=== PATIENT | female | born 1990 | race Caucasian/White ===

== ENCOUNTER 2017-02-15 16:36 | Inpatient (IN) | payer OTHER ==
[~2017-02-15] VITALS: Ht 149.9 cm; Wt 58.5 kg
[~2017-02-15 16:36] MED LIST: AMOX500 PO; CODACE30 PO; CYCL10 PO; Flonase 0.05% N16 GM; HYDACE5 PO; IBUP600 PO; LIDO2L TOP; NAPR375 PO; NAPR500 PO; NAPR550 PO; Naprosyn500 MG PO; Nix Lice Treatm59 ML TOP; OXYACE5T PO; PSEU120ER PO; RXCYCL10 PO; RXNAPNA550 PO; Ultram50 MG PO; Veetids 500500 MG PO; Verotin-Gr Cap1 EACH PO; Zofran Odt4 MG SL
[2017-02-15 17:26] LABS: BASOPHILS ABSOLUTE AUTO 0.02 K/mm3 (0.00-0.23); BASOPHILS PERCENT AUTO 0 % (0-2); EOSINOPHILS ABSOLUTE AUTO 0.01 K/mm3 (0.00-0.68); EOSINOPHILS PERCENT AUTO 0 % (0-6); Hematocrit 39.5 % (33.0-51.0); Hemoglobin 13.2 g/dL (11.5-16.0); IMMATURE GRAN ABSOLUTE AUTO 0.02 K/mm3 (0.00-0.10); IMMATURE GRAN PERCENT AUTO 0 % (0-1); LYMPHOCYTES ABSOLUTE AUTO 2.63 K/mm3 (0.84-5.20); LYMPHOCYTES PERCENT AUTO 26 % (21-46); MONOCYTES ABSOLUTE AUTO 0.33 K/mm3 (0.16-1.47); MONOCYTES PERCENT AUTO 3 % (4-13); Mean Corpuscular HGB 29.5 pg (26.0-34.0); Mean Corpuscular HGB Conc 33.4 g/dL (31.5-36.5); Mean Corpuscular Volume 88 fL (80-100); NEUTROPHILS ABSOLUTE AUTO 7.13 K/mm3 (1.96-9.15); NEUTROPHILS PERCENT AUTO 70 % (41-73); Platelet Count 261 K/mm3 (150-400); RDW Coefficient Variation 12.3 % (11.7-14.2); RDW Standard Deviation 39.5 fL (35.1-46.3); Red Blood Cell Count 4.47 M/mm3 (3.80-5.20); White Blood Cell Count 10.14 K/mm3 (4.00-11.30)
[2017-02-15 17:59] LABS: Ethanol (Alcohol), Blood, Med <3 mg/dL; Salicylate <1.7 mg/dL (2.8-20.0); Thyroxine (T4) 11.9 ug/dL (4.8-13.9)
[2017-02-15 18:00] LABS: Alanine Aminotransfer (ALT/SGP 23 U/L (12-78); Albumin, Blood 3.8 g/dL (3.4-5.0); Albumin/Globulin Ratio 1.1 (0.8-1.8); Alk Phos 64 U/L (50-136); Anion Gap 9 mmol/L (6-16); Aspartate Aminotrans (AST/SGOT 20 U/L (12-37); Bilirubin, Total 0.6 mg/dL (0.1-1.0); Blood Urea Nitrogen 10 mg/dL (8-24); Bun/Creatinine Ratio 15.9 (12.0-20.0); CO2, Blood 23 mmol/L (21-32); Calcium, Blood 8.7 mg/dL (8.5-10.1); Chloride, Blood 107 mmol/L (98-108); Creatinine, Blood 0.63 mg/dL (0.40-1.00); Globulin, Blood 3.5 g/dL (2.2-4.0); Glomerular Filtration Rate >60 (60-); Glucose, Blood 88 mg/dL (70-99); Potassium, Blood 3.6 mmol/L (3.5-5.5); Sodium, Blood 139 mmol/L (136-145); Total Protein, Blood 7.3 g/dL (6.4-8.2)
[2017-02-15 18:10] LABS: Acetaminophen, Random 125.5 ug/mL (10.0-30.0)
[2017-02-15 23:51] LABS: International Normalized Ratio 1.04; Prothrombin Time Results 10.8 Sec (9.7-11.5)
[2017-02-16 03:40] LABS: BASOPHILS ABSOLUTE AUTO 0.02 K/mm3 (0.00-0.23); BASOPHILS PERCENT AUTO 0 % (0-2); EOSINOPHILS ABSOLUTE AUTO 0.02 K/mm3 (0.00-0.68); EOSINOPHILS PERCENT AUTO 0 % (0-6); Hematocrit 34.8 % (33.0-51.0); Hemoglobin 11.9 g/dL (11.5-16.0); IMMATURE GRAN ABSOLUTE AUTO 0.01 K/mm3 (0.00-0.10); IMMATURE GRAN PERCENT AUTO 0 % (0-1); LYMPHOCYTES PERCENT AUTO 27 % (21-46); MONOCYTES ABSOLUTE AUTO 0.55 K/mm3 (0.16-1.47); MONOCYTES PERCENT AUTO 7 % (4-13); Mean Corpuscular HGB 29.9 pg (26.0-34.0); Mean Corpuscular HGB Conc 34.2 g/dL (31.5-36.5); Mean Corpuscular Volume 87 fL (80-100); Mean Platelet Volume 9.1 fL (9.1-12.4); NEUTROPHILS ABSOLUTE AUTO 5.59 K/mm3 (1.96-9.15); NEUTROPHILS PERCENT AUTO 66 % (41-73); Platelet Count 252 K/mm3 (150-400); RDW Coefficient Variation 12.2 % (11.7-14.2); RDW Standard Deviation 39.5 fL (35.1-46.3); Red Blood Cell Count 3.98 M/mm3 (3.80-5.20); White Blood Cell Count 8.49 K/mm3 (4.00-11.30)
[2017-02-16 04:09] LABS: Alanine Aminotransfer (ALT/SGP 16 U/L (12-78); Albumin, Blood 3.1 g/dL (3.4-5.0); Alk Phos 48 U/L (50-136); Anion Gap 10 mmol/L (6-16); Aspartate Aminotrans (AST/SGOT 11 U/L (12-37); Bilirubin, Total 0.6 mg/dL (0.1-1.0); Blood Urea Nitrogen 8 mg/dL (8-24); Bun/Creatinine Ratio 14.2 (12.0-20.0); CO2, Blood 23 mmol/L (21-32); Chloride, Blood 105 mmol/L (98-108); Creatinine, Blood 0.57 mg/dL (0.40-1.00); Globulin, Blood 3.2 g/dL (2.2-4.0); Glomerular Filtration Rate >60 (60-); Glucose, Blood 128 mg/dL (70-99); Potassium, Blood 3.4 mmol/L (3.5-5.5); Sodium, Blood 138 mmol/L (136-145); Total Protein, Blood 6.3 g/dL (6.4-8.2)
[2017-02-16 04:24] LABS: Bilirubin, Urine Neg (Neg); Blood, Urine 1+ (Neg); Glucose Qualitative, Urine Neg (Neg); Ketones, Urine 3+ (Neg); Leukocyte Esterase, Urine 2+ (Neg); Nitrite, Urine Neg (Neg); Protein, Urine Neg (Neg); Source, Urine Clean Catch; Urobilinogen, Urine NORM (Normal)
[2017-02-16 04:35] LABS: U Amphetamine Screen Not Detected; U Barbituate Screen Not Detected; U Benzodiazapine Screen Not Detected; U Buprenorphine Screen Not Detected; U Cannabinoids Screen DETECTED; U Cocaine Screen Not Detected; U Methadone Screen Not Detected; U Methamphetamine Screen Not Detected; U Opiates Screen Not Detected; U Oxycodone Screen Not Detected; U Phencyclidine Screen Not Detected; U Propoxyphene Screen Not Detected
[2017-02-16 04:36] LABS: Appearance, Urine Clear (Clear); Color, Urine Yellow (P-Yellow)
[2017-02-16 04:37] LABS: Bacteria Many /hpf; Red Blood Cells, Urine 0-2 /hpf (0-2); Squamous Epithelial Cells Mod /hpf (Few)
[2017-02-16 05:39] LABS: Calcium, Blood 7.7 mg/dL (8.5-10.1)
[2017-02-16 17:43] LABS: Acetaminophen, Random <2.0 ug/mL (10.0-30.0); Alanine Aminotransfer (ALT/SGP 21 U/L (12-78); Albumin, Blood 2.9 g/dL (3.4-5.0); Albumin/Globulin Ratio 0.9 (0.8-1.8); Alk Phos 48 U/L (50-136); Anion Gap 9 mmol/L (6-16); Aspartate Aminotrans (AST/SGOT 11 U/L (12-37); Bilirubin, Total 0.3 mg/dL (0.1-1.0); Blood Urea Nitrogen 7 mg/dL (8-24); Bun/Creatinine Ratio 11.4 (12.0-20.0); CO2, Blood 24 mmol/L (21-32); Calcium, Blood 8.3 mg/dL (8.5-10.1); Chloride, Blood 110 mmol/L (98-108); Creatinine, Blood 0.62 mg/dL (0.40-1.00); Globulin, Blood 3.2 g/dL (2.2-4.0); Glomerular Filtration Rate >60 (60-); Glucose, Blood 73 mg/dL (70-99); Potassium, Blood 3.7 mmol/L (3.5-5.5); Sodium, Blood 143 mmol/L (136-145); Total Protein, Blood 6.1 g/dL (6.4-8.2)
[2017-02-17 10:48] LABS: Alanine Aminotransfer (ALT/SGP 13 U/L (12-78); Albumin, Blood 2.9 g/dL (3.4-5.0); Albumin/Globulin Ratio 0.9 (0.8-1.8); Alk Phos 49 U/L (50-136); Anion Gap 7 mmol/L (6-16); Aspartate Aminotrans (AST/SGOT 9 U/L (12-37); Bilirubin, Total 0.6 mg/dL (0.1-1.0); Blood Urea Nitrogen 8 mg/dL (8-24); Bun/Creatinine Ratio 11.4 (12.0-20.0); CO2, Blood 25 mmol/L (21-32); Chloride, Blood 108 mmol/L (98-108); Globulin, Blood 3.1 g/dL (2.2-4.0); Glomerular Filtration Rate >60 (60-); Glucose, Blood 87 mg/dL (70-99); Sodium, Blood 140 mmol/L (136-145)
[2017-06-03] MEDS ORDERED: ESCI20 PO (08:19)
[2017-06-03] MEDS ORDERED: CYCL10 PO (08:20)
[2017-06-03] MEDS ORDERED: NITR100 PO (08:20)
[2017-06-03] MEDS ORDERED: NAPR550 PO (08:20)
[2017-06-03] MEDS ORDERED: Norco 5-325 Ta1 EACH PO (08:58)
[2017-12-18] MEDS ORDERED: Verotin-Gr Cap1 EACH PO (19:45)
== END 2017-02-19 07:07 | disposition short-term general hospital (02) | DRG 918 ==
LOC: ER 16:36 → ICUW 21:26 → ICUE 02-16 09:30
PROVIDERS: Internal Medicine; Physician Assistant
DX: T39.1X2A Poisoning by 4-Aminophenol derivatives, intentional self-harm, initial encounter (principal); R45.851 Suicidal ideations; N39.0 Urinary tract infection, site not specified; Z91.5 Personal history of self-harm; F32.9 Major depressive disorder, single episode, unspecified; Z88.0 Allergy status to penicillin; B96.20 Unspecified Escherichia coli [E. coli] as the cause of diseases classified elsewhere
CPT/HCPCS: 36415; 80053; 81001; 81025; 84436; 84443; 85025; 85610; 87077; 87086; 87186; 93005; 93010; 96374; 99285; G0008; G0480; J0132; J1650; J2405; J7030; J7060; J7070; Q0177; Q2038

== ENCOUNTER 2017-03-08 10:58 | Emergency (ER) | payer SELFPAY ==
[~2017-03-08] VITALS: Ht 149.9 cm; Wt 56.7 kg
[2017-03-08] MEDS ORDERED: Lexapro 2020 MG PO (11:12)
[2017-06-03] MEDS ORDERED: ESCI20 PO (08:19)
[2017-06-03] MEDS ORDERED: NAPR550 PO (08:20)
[2017-06-03] MEDS ORDERED: NITR100 PO (08:20)
[2017-06-03] MEDS ORDERED: CYCL10 PO (08:20)
[2017-06-03] MEDS ORDERED: Norco 5-325 Ta1 EACH PO (08:58)
[2017-12-18] MEDS ORDERED: Verotin-Gr Cap1 EACH PO (19:45)
== END 2017-03-08 11:21 | disposition home or self-care (01) ==
LOC: ER 10:58
DX: F32.9 Major depressive disorder, single episode, unspecified (principal); Z76.0 Encounter for issue of repeat prescription; Z88.0 Allergy status to penicillin
CPT/HCPCS: 99281

== ENCOUNTER 2017-04-09 12:48 | Emergency (ER) | payer OTHER ==
[~2017-04-09] VITALS: Ht 149.9 cm; Wt 54.4 kg
[~2017-04-09 12:48] MED LIST changes: +Lexapro 2020 MG PO
[2017-04-09] MEDS ORDERED: Lexapro 2020 MG PO (13:51)
[2017-04-09] MEDS ORDERED: Cleocin HCl150 MG PO (13:52)
[2017-06-03] MEDS ORDERED: ESCI20 PO (08:19)
[2017-06-03] MEDS ORDERED: NITR100 PO (08:20)
[2017-06-03] MEDS ORDERED: NAPR550 PO (08:20)
[2017-06-03] MEDS ORDERED: CYCL10 PO (08:20)
[2017-06-03] MEDS ORDERED: Norco 5-325 Ta1 EACH PO (08:58)
[2017-12-18] MEDS ORDERED: Verotin-Gr Cap1 EACH PO (19:45)
== END 2017-04-09 14:00 | disposition home or self-care (01) ==
LOC: ER 12:48
DX: Z76.0 Encounter for issue of repeat prescription (principal); K04.7 Periapical abscess without sinus; F41.9 Anxiety disorder, unspecified; F32.9 Major depressive disorder, single episode, unspecified; Z88.0 Allergy status to penicillin; Z79.899 Other long term (current) drug therapy
CPT/HCPCS: 99283

== ENCOUNTER → 2017-05-18 | Outpatient (CLI) | payer OTHER ==
[~2017-05-18] MED LIST changes: +Cleocin HCl150 MG PO; +ESCI20 PO; +NITR100 PO; +Norco 5-325 Ta1 EACH PO
[2017-05-19 03:57] LABS: Source VAG/CERVIX
== END | disposition home or self-care (01) ==
LOC: LAB SHORT 09:50 → LAB 09:50
PROVIDERS: Obstetrics & Gynecology
DX: Z01.419 Encounter for gynecological examination (general) (routine) without abnormal findings (principal)
CPT/HCPCS: G0123

== ENCOUNTER 2017-06-26 23:13 | Emergency (ER) | payer OTHER ==
[~2017-06-26] VITALS: Ht 149.9 cm; Wt 59.0 kg
== END 2017-06-27 00:47 | disposition home or self-care (01) ==
LOC: ER 23:13
DX: S63.91XA Sprain of unspecified part of right wrist and hand, initial encounter (principal); S60.011A Contusion of right thumb without damage to nail, initial encounter; S60.021A Contusion of right index finger without damage to nail, initial encounter; Z88.0 Allergy status to penicillin; Z79.899 Other long term (current) drug therapy; W21.03XA Struck by baseball, initial encounter
CPT/HCPCS: 73130; 99283

== ENCOUNTER 2017-06-29 16:32 | Emergency (ER) | payer OTHER ==
[~2017-06-29] VITALS: Ht 149.9 cm; Wt 61.2 kg
[2017-06-29] MEDS ORDERED: IBUP800 PO (18:22)
== END 2017-06-29 18:41 | disposition home or self-care (01) ==
LOC: ER 16:32
DX: M79.641 Pain in right hand (principal); M25.531 Pain in right wrist; Z88.0 Allergy status to penicillin; Z79.899 Other long term (current) drug therapy
CPT/HCPCS: 29125; 99283; L3917

== ENCOUNTER 2018-06-27 20:28 | Inpatient (IN) | payer OTHER ==
[~2018-06-27] VITALS: Ht 149.9 cm; Wt 70.9 kg
[~2018-06-27 20:28] MED LIST changes: +IBUP800 PO
[2018-06-27 21:05] LABS: Source, Urine Clean Catch
[2018-06-27 21:45] LABS: Glucose Qualitative, Urine Neg (Neg); Leukocyte Esterase, Urine 3+ (Neg); Nitrite, Urine Neg (Neg); Protein, Urine 2+ (Neg)
[2018-06-27 21:46] LABS: Appearance, Urine Cloudy (Clear); Bilirubin, Urine 1+ (Neg); Blood, Urine 2+ (Neg); Color, Urine Yellow (P-Yellow); Ketones, Urine 1+ (Neg); Urobilinogen, Urine 1+ (Normal)
[2018-06-27 21:47] LABS: Bacteria Many /hpf; Squamous Epithelial Cells Many /hpf (Few); White Blood Cells, Urine TNTC /hpf (0-5)
[2018-06-27 23:02] LABS: BASOPHILS ABSOLUTE AUTO 0.02 K/mm3 (0.00-0.23); BASOPHILS PERCENT AUTO 0 % (0-2); EOSINOPHILS ABSOLUTE AUTO 0.07 K/mm3 (0.00-0.68); EOSINOPHILS PERCENT AUTO 1 % (0-6); Hematocrit 35.8 % (33.0-51.0); Hemoglobin 12.3 g/dL (11.5-16.0); IMMATURE GRAN ABSOLUTE AUTO 0.06 K/mm3 (0.00-0.10); IMMATURE GRAN PERCENT AUTO 1 % (0-1); LYMPHOCYTES ABSOLUTE AUTO 2.95 K/mm3 (0.84-5.20); LYMPHOCYTES PERCENT AUTO 25 % (21-46); MONOCYTES ABSOLUTE AUTO 0.57 K/mm3 (0.16-1.47); MONOCYTES PERCENT AUTO 5 % (4-13); Mean Corpuscular HGB 31.3 pg (26.0-34.0); Mean Corpuscular HGB Conc 34.4 g/dL (31.5-36.5); Mean Corpuscular Volume 91 fL (80-100); Mean Platelet Volume 10.6 fL (9.1-12.4); NEUTROPHILS ABSOLUTE AUTO 8.17 K/mm3 (1.96-9.15); NEUTROPHILS PERCENT AUTO 69 % (41-73); Platelet Count 181 K/mm3 (150-400); RDW Coefficient Variation 12.3 % (11.7-14.2); RDW Standard Deviation 40.8 fL (35.1-46.3); Red Blood Cell Count 3.93 M/mm3 (3.80-5.20); White Blood Cell Count 11.84 K/mm3 (4.00-11.30)
[2018-06-29 05:41] LABS: Hematocrit 29.8 % (33.0-51.0); Hemoglobin 10.1 g/dL (11.5-16.0); Mean Corpuscular HGB 31.3 pg (26.0-34.0); Mean Corpuscular HGB Conc 33.9 g/dL (31.5-36.5); Mean Corpuscular Volume 92 fL (80-100); Mean Platelet Volume 9.7 fL (9.1-12.4); Platelet Count 131 K/mm3 (150-400); RDW Coefficient Variation 12.3 % (11.7-14.2); Red Blood Cell Count 3.23 M/mm3 (3.80-5.20); White Blood Cell Count 12.78 K/mm3 (4.00-11.30)
[2018-06-29] MEDS ORDERED: IBUP800 PO (12:46)
--- NOTE | 2018-06-29 16:50 | NUR ---
DISCHARGE INSTRUCTION, WRITTEN AND VERBAL, GIVEN TO PT. ANSWERED ALL HER QUESTIONS AND CONCERNS. WRITTEN PRESCRIPTION GIVEN, FOLLOW UP SCHEDULE. PT IS DISCHARGED TO BOARDER STATUS.
== END 2018-06-29 17:00 | disposition home or self-care (01) | DRG 807 ==
LOC: OBS 20:28 → BC 20:29 → OBS 22:41 → BC 22:48
PROVIDERS: ADMIT Advanced Practice Midwife
PROC: 10E0XZZ Delivery of Products of Conception, External Approach (ICD-10-PCS; principal; 2018-06-28)
PROC: 6A550ZT Pheresis of Cord Blood Stem Cells, Single (ICD-10-PCS; 2018-06-28)
PROC: 10H07YZ Insertion of Other Device into Products of Conception, Via Natural or Artificial Opening (ICD-10-PCS; 2018-06-28)
PROC: 4A1H7CZ Monitoring of Products of Conception, Cardiac Rate, Via Natural or Artificial Opening (ICD-10-PCS; 2018-06-28)
DX: O24.420 Gestational diabetes mellitus in childbirth, diet controlled (principal); Z37.0 Single live birth; Z3A.38 38 weeks gestation of pregnancy; O76 Abnormality in fetal heart rate and rhythm complicating labor and delivery; O99.824 Streptococcus B carrier state complicating childbirth; O71.82 Other specified trauma to perineum and vulva
CPT/HCPCS: 36415; 51702; 59025; 81001; 85025; 85027; 87086; 99213; J1885; J2001; J2210; J2405; J2590; J3370; J7120

== ENCOUNTER 2018-09-25 20:28 | Emergency (ER) | payer OTHER ==
[~2018-09-25] VITALS: Ht 149.9 cm; Wt 64.4 kg
== END 2018-09-25 22:00 | disposition home or self-care (01) ==
LOC: ER 20:28
DX: L25.8 Unspecified contact dermatitis due to other agents (principal); Z88.0 Allergy status to penicillin
CPT/HCPCS: 99282

== ENCOUNTER 2019-10-15 19:21 | Inpatient (IN) | payer OTHER ==
[~2019-10-15] VITALS: Ht 149.9 cm; Wt 78.6 kg
[2019-10-15] MEDS ORDERED: PRENATAL TABLE1 EAC2 PO (21:43)
--- NOTE | 2019-10-15 21:46 | NUR ---
PT REPORTS HX OF SA IN 2017 WITH TYLENOL OD. SHE DENIES ANY CURRENT THOUGHTS OF SELF HARM.
[2019-10-15 21:49] LABS: BASOPHILS ABSOLUTE AUTO 0.02 K/mm3 (0.00-0.23); BASOPHILS PERCENT AUTO 0 % (0-2); EOSINOPHILS PERCENT AUTO 2 % (0-6); Hematocrit 35.4 % (33.0-51.0); Hemoglobin 12.3 g/dL (11.5-16.0); IMMATURE GRAN ABSOLUTE AUTO 0.06 K/mm3 (0.00-0.10); IMMATURE GRAN PERCENT AUTO 1 % (0-1); LYMPHOCYTES PERCENT AUTO 22 % (21-46); MONOCYTES ABSOLUTE AUTO 0.67 K/mm3 (0.16-1.47); MONOCYTES PERCENT AUTO 5 % (4-13); Mean Corpuscular HGB 31.1 pg (26.0-34.0); Mean Corpuscular HGB Conc 34.7 g/dL (31.5-36.5); Mean Corpuscular Volume 89 fL (80-100); Mean Platelet Volume 10.3 fL (9.1-12.4); NEUTROPHILS ABSOLUTE AUTO 9.02 K/mm3 (1.96-9.15); NEUTROPHILS PERCENT AUTO 71 % (41-73); Platelet Count 186 K/mm3 (150-400); RDW Coefficient Variation 12.4 % (11.7-14.2); Red Blood Cell Count 3.96 M/mm3 (3.80-5.20); White Blood Cell Count 12.77 K/mm3 (4.00-11.30)
--- NOTE | 2019-10-16 08:00 | NUR ---
ASSUMED CARE STABLE PT CARING FOR SELF AND NB WELL, DENIES NEED FOR PAIN MEDS AT THIS TIME, BOTTLE FEEDING NB, PT DOING ALL CARE FOR NB, SO IN ROOM
--- NOTE | 2019-10-16 18:50 | NUR ---
REPT TO PM SHIFT
[2019-10-17 06:18] LABS: BASOPHILS ABSOLUTE AUTO 0.05 K/mm3 (0.00-0.23); BASOPHILS PERCENT AUTO 0 % (0-2); EOSINOPHILS ABSOLUTE AUTO 0.29 K/mm3 (0.00-0.68); EOSINOPHILS PERCENT AUTO 2 % (0-6); Hematocrit 32.4 % (33.0-51.0); Hemoglobin 10.9 g/dL (11.5-16.0); IMMATURE GRAN ABSOLUTE AUTO 0.07 K/mm3 (0.00-0.10); IMMATURE GRAN PERCENT AUTO 1 % (0-1); LYMPHOCYTES ABSOLUTE AUTO 3.38 K/mm3 (0.84-5.20); LYMPHOCYTES PERCENT AUTO 25 % (21-46); MONOCYTES ABSOLUTE AUTO 0.63 K/mm3 (0.16-1.47); MONOCYTES PERCENT AUTO 5 % (4-13); Mean Corpuscular HGB 31.2 pg (26.0-34.0); Mean Corpuscular HGB Conc 33.6 g/dL (31.5-36.5); Mean Corpuscular Volume 93 fL (80-100); Mean Platelet Volume 10.1 fL (9.1-12.4); NEUTROPHILS ABSOLUTE AUTO 9.32 K/mm3 (1.96-9.15); NEUTROPHILS PERCENT AUTO 68 % (41-73); Platelet Count 148 K/mm3 (150-400); RDW Coefficient Variation 12.9 % (11.7-14.2); RDW Standard Deviation 42.6 fL (35.1-46.3); Red Blood Cell Count 3.49 M/mm3 (3.80-5.20); White Blood Cell Count 13.74 K/mm3 (4.00-11.30)
== END 2019-10-17 09:15 | disposition home or self-care (01) | DRG 807 ==
LOC: OBS 19:21 → BC 19:23 → OBS 21:11 → BC 21:22
PROVIDERS: ADMIT Nurse Practitioner Obstetrics & Gynecology
PROC: 10E0XZZ Delivery of Products of Conception, External Approach (ICD-10-PCS; principal; 2019-10-16)
PROC: 10907ZC Drainage of Amniotic Fluid, Therapeutic from Products of Conception, Via Natural or Artificial Opening (ICD-10-PCS; 2019-10-16)
DX: O24.420 Gestational diabetes mellitus in childbirth, diet controlled (principal); Z37.0 Single live birth; Z3A.37 37 weeks gestation of pregnancy; O69.3XX0 Labor and delivery complicated by short cord, not applicable or unspecified
CPT/HCPCS: 36415; 59025; 82947; 85025; 86850; 86900; 86901; J1885; J2210; J2590; J3010; J7120

== ENCOUNTER 2020-08-25 10:15 | Emergency (ER) | payer OTHER ==
[~2020-08-25] VITALS: Ht 149.9 cm; Wt 115.2 kg
[~2020-08-25 10:15] MED LIST changes: +PRENATAL TABLE1 EAC2 PO
[2020-08-25] MEDS ORDERED: EUTHYROX50 MC1 (10:35)
[2020-08-25] MEDS ORDERED: EMVERM100 MG PO (10:56)
== END 2020-08-25 11:04 | disposition home or self-care (01) ==
LOC: ER 10:15
DX: B80 Enterobiasis (principal); Z88.0 Allergy status to penicillin; Z79.899 Other long term (current) drug therapy
CPT/HCPCS: 99282

== ENCOUNTER 2020-09-19 20:22 | Emergency (ER) | payer OTHER ==
[~2020-09-19] VITALS: Ht 149.9 cm; Wt 70.8 kg
[~2020-09-19 20:22] MED LIST changes: +EMVERM100 MG PO; +EUTHYROX50 MC1
[2020-09-19 21:04] LABS: BASOPHILS ABSOLUTE AUTO 0.03 K/mm3 (0.00-0.23); BASOPHILS PERCENT AUTO 0 % (0-2); EOSINOPHILS ABSOLUTE AUTO 0.13 K/mm3 (0.00-0.68); EOSINOPHILS PERCENT AUTO 1 % (0-6); Hematocrit 33.2 % (33.0-51.0); Hemoglobin 11.5 g/dL (11.5-16.0); IMMATURE GRAN ABSOLUTE AUTO 0.05 K/mm3 (0.00-0.10); IMMATURE GRAN PERCENT AUTO 0 % (0-1); LYMPHOCYTES ABSOLUTE AUTO 1.99 K/mm3 (0.84-5.20); LYMPHOCYTES PERCENT AUTO 16 % (21-46); MONOCYTES ABSOLUTE AUTO 0.52 K/mm3 (0.16-1.47); MONOCYTES PERCENT AUTO 4 % (4-13); Mean Corpuscular HGB Conc 34.6 g/dL (31.5-36.5); Mean Corpuscular Volume 90 fL (80-100); Mean Platelet Volume 9.6 fL (9.1-12.4); NEUTROPHILS ABSOLUTE AUTO 10.05 K/mm3 (1.96-9.15); NEUTROPHILS PERCENT AUTO 79 % (41-73); Platelet Count 214 K/mm3 (150-400); RDW Coefficient Variation 13.2 % (11.7-14.2); RDW Standard Deviation 43.8 fL (35.1-46.3); Red Blood Cell Count 3.71 M/mm3 (3.80-5.20); White Blood Cell Count 12.77 K/mm3 (4.00-11.30)
[2020-09-19 21:05] LABS: Source, Urine Clean Catch
[2020-09-19 21:14] LABS: Appearance, Urine Clear (Clear); Bilirubin, Urine Neg (Neg); Blood, Urine Neg (Neg); Color, Urine Yellow (P-Yellow); Glucose Qualitative, Urine Neg (Neg); Ketones, Urine 2+ (Neg); Leukocyte Esterase, Urine 1+ (Neg); Nitrite, Urine Neg (Neg); Protein, Urine 2+ (Neg); Urobilinogen, Urine NORM (Normal)
[2020-09-19 21:21] LABS: Bacteria Many /hpf; Mucus Heavy (0-Heavy); Red Blood Cells, Urine Not Seen /hpf (0-2); Squamous Epithelial Cells Mod /hpf (Few)
[2020-09-19 21:25] LABS: Alanine Aminotransfer (ALT/SGP 20 U/L (12-78); Albumin, Blood 2.9 g/dL (3.4-5.0); Albumin/Globulin Ratio 0.8 (0.8-1.8); Alk Phos 88 U/L (50-136); Anion Gap 8 mmol/L (6-16); Aspartate Aminotrans (AST/SGOT 17 U/L (12-37); Bilirubin, Total 0.5 mg/dL (0.1-1.0); Blood Urea Nitrogen 7 mg/dL (8-24); CO2, Blood 20 mmol/L (21-32); Calcium, Blood 8.3 mg/dL (8.5-10.1); Chloride, Blood 110 mmol/L (98-108); Creatinine, Blood 0.58 mg/dL (0.40-1.00); Globulin, Blood 3.7 g/dL (2.2-4.0); Glomerular Filtration Rate >60 (60-); Glucose, Blood 77 mg/dL (70-99); Potassium, Blood 3.3 mmol/L (3.5-5.5); Sodium, Blood 138 mmol/L (136-145); Total Protein, Blood 6.6 g/dL (6.4-8.2)
[2020-09-19 22:57] LABS: Free Thyroxine 1.06 ng/dL (0.70-1.60); Magnesium, Blood 1.7 mg/dL (1.6-2.4)
== END 2020-09-19 23:52 | disposition home or self-care (01) ==
LOC: ER 20:22
PROVIDERS: Physician Assistant
DX: O99.891 Other specified diseases and conditions complicating pregnancy (principal); R10.30 Lower abdominal pain, unspecified; Z3A.21 21 weeks gestation of pregnancy; Z88.0 Allergy status to penicillin; Z79.899 Other long term (current) drug therapy
CPT/HCPCS: 36415; 76815; 80053; 81001; 83735; 84439; 84443; 85025; 87086; 99284-25; A9270; J7030

== ENCOUNTER 2020-12-21 23:31 | Emergency (ER) | payer OTHER ==
[~2020-12-21] VITALS: Ht 149.9 cm; Wt 76.7 kg
== END 2020-12-22 01:56 | disposition home or self-care (01) ==
LOC: ER 23:31
DX: O98.513 Other viral diseases complicating pregnancy, third trimester (principal); U07.1 COVID-19; Z3A.34 34 weeks gestation of pregnancy; Z88.0 Allergy status to penicillin; Z79.899 Other long term (current) drug therapy; O99.613 Diseases of the digestive system complicating pregnancy, third trimester; K21.9 Gastro-esophageal reflux disease without esophagitis
CPT/HCPCS: 99284

== ENCOUNTER 2021-01-02 08:15 | Inpatient (IN) | payer OTHER ==
[~2021-01-02] VITALS: Ht 149.9 cm; Wt 72.0 kg
[2021-01-02 13:50] LABS: BASOPHILS ABSOLUTE AUTO 0.02 K/mm3 (0.00-0.23); BASOPHILS PERCENT AUTO 0 % (0-2); EOSINOPHILS ABSOLUTE AUTO 0.07 K/mm3 (0.00-0.68); EOSINOPHILS PERCENT AUTO 1 % (0-6); Hematocrit 34.3 % (33.0-51.0); Hemoglobin 11.9 g/dL (11.5-16.0); IMMATURE GRAN ABSOLUTE AUTO 0.11 K/mm3 (0.00-0.10); IMMATURE GRAN PERCENT AUTO 2 % (0-1); LYMPHOCYTES ABSOLUTE AUTO 1.68 K/mm3 (0.84-5.20); LYMPHOCYTES PERCENT AUTO 23 % (21-46); MONOCYTES ABSOLUTE AUTO 0.55 K/mm3 (0.16-1.47); MONOCYTES PERCENT AUTO 8 % (4-13); Mean Corpuscular HGB 30.1 pg (26.0-34.0); Mean Corpuscular HGB Conc 34.7 g/dL (31.5-36.5); Mean Corpuscular Volume 87 fL (80-100); Mean Platelet Volume 10.3 fL (9.1-12.4); NEUTROPHILS ABSOLUTE AUTO 4.88 K/mm3 (1.96-9.15); NEUTROPHILS PERCENT AUTO 67 % (41-73); Platelet Count 202 K/mm3 (150-400); RDW Coefficient Variation 13.2 % (11.7-14.2); RDW Standard Deviation 40.1 fL (35.1-46.3); Red Blood Cell Count 3.96 M/mm3 (3.80-5.20); White Blood Cell Count 7.31 K/mm3 (4.00-11.30)
== END 2021-01-02 21:16 | disposition home or self-care (01) | DRG 833 ==
LOC: BC 08:15 → OBS 08:15 → BC 13:35
PROVIDERS: ADMIT Advanced Practice Midwife
DX: O60.03 Preterm labor without delivery, third trimester (principal); Z3A.36 36 weeks gestation of pregnancy
CPT/HCPCS: 36415; 59025; 85025; 86850; 86900; 86901; 87081; 87150; 90686; A9270; J2210; J2590; J7120

== ENCOUNTER 2021-01-14 06:11 | Inpatient (IN) | payer OTHER ==
[~2021-01-14] VITALS: Ht 152.4 cm; Wt 76.2 kg
--- NOTE | 2021-01-14 07:25 | NUR ---
TELEPHONE ORDER TO CLEAR MOD SUICIDE RISK, PT ATTEMPT IN 2017 TAKING TYLENOL WAS IN ICU THEN WENT TO TREATMENT, DECLINES ANY THOUGHTS SINCE THEN. [facility] CNM DECLINES TO RESTART PT THYRIOD MEDICATION REPORTS WAS ONLY NEEDED IN AT THIS TIME WILL RECHECK PT IN OFFICE LATER.
[2021-01-15 06:04] LABS: Hematocrit 33.1 % (33.0-51.0); Mean Corpuscular HGB 30.1 pg (26.0-34.0); Mean Corpuscular HGB Conc 33.2 g/dL (31.5-36.5); Mean Corpuscular Volume 91 fL (80-100); Mean Platelet Volume 10.4 fL (9.1-12.4); Platelet Count 156 K/mm3 (150-400); RDW Coefficient Variation 13.3 % (11.7-14.2); RDW Standard Deviation 43.2 fL (35.1-46.3); Red Blood Cell Count 3.65 M/mm3 (3.80-5.20); White Blood Cell Count 12.84 K/mm3 (4.00-11.30)
[2021-01-15] MEDS ORDERED: Percocet 5-3251 EACH PO (09:56)
[2021-01-15] MEDS ORDERED: IBUP800 PO (09:56)
[2021-01-15] MEDS ORDERED: DOCU100 PO (09:57)
--- NOTE | 2021-01-15 12:23 | NUR ---
1140 DISCHARGE INSTRUCTIONS WERE DISCUSSED WITH PATIENT. SHE CONTINUES TO HAVE SIGNIFICANT CRAMPING; LUIS MYERS GAVE HER AN RX FOR PERCOCET AND IBUPROFEN. WE DISCUSSED USING A HEATING PAD AND TAKING IT EASY WHEN SHE GETS HOME. WE ALSO DISCUSSED ALTERNATING IBUPROFEN AND TYLENOL, KEEPING IN MIND THAT PERCOCET ALSO HAS TYLENOL IN IT. THE PATIENT WILL FOLLOW UP ON MONDAY. SHE WAS DISCHARGED HOME WITH HER SO AND .
== END 2021-01-15 11:45 | disposition home or self-care (01) | DRG 807 ==
LOC: OBS 06:11 → BC 06:12 → OBS 06:18 → BC 06:20
PROVIDERS: ADMIT Advanced Practice Midwife
PROC: 10E0XZZ Delivery of Products of Conception, External Approach (ICD-10-PCS; principal; 2021-01-14)
DX: O99.284 Endocrine, nutritional and metabolic diseases complicating childbirth (principal); Z37.0 Single live birth; O24.12 Pre-existing type 2 diabetes mellitus, in childbirth; Z3A.38 38 weeks gestation of pregnancy; E03.9 Hypothyroidism, unspecified
CPT/HCPCS: 36415; 85027; A9270; J3430

== ENCOUNTER 2021-06-03 09:20 | Day surgery (SDC) | payer OTHER ==
[~2021-06-03] VITALS: Ht 149.9 cm; Wt 67.1 kg
[~2021-06-03 09:20] MED LIST changes: +DOCU100 PO; +Percocet 5-3251 EACH PO
--- NOTE | 2021-06-03 10:30 | NUR ---
06/03/21 Hanane0 Beba Hodges PRIOR TO PREPPING PATIENT FOR SURGERY, NOTED REDDNESS AND IRRITATION NEAR JUAN AND RECTUM, WONDERLY NOTIFIED.
--- NOTE | 2021-06-03 11:45 | NUR ---
PT ARRIVED FROM PACU, IV SL. FEELING DIZZY, BUT OTHERWISE FEELS OK.
--- NOTE | 2021-06-03 12:50 | NUR ---
Patient up to Ambulate independently. Gait steady. Discharge instructions reviewed with patient. Patient verbalizes understanding. Copy given to patient to take home. Patient States Post-Procedure ride home has been arranged. Incisions intact with dermabond.
== END 2021-06-03 12:50 | disposition home or self-care (01) ==
LOC: ORSCMMR 09:20 → ORD 14:30
PROVIDERS: Obstetrics & Gynecology
PROC: 0UT74ZZ Resection of Bilateral Fallopian Tubes, Percutaneous Endoscopic Approach (ICD-10-PCS; principal; 2021-06-03 14:30)
DX: Z30.2 Encounter for sterilization (principal)
CPT/HCPCS: 88302; A9270; J0171; J1580; J2250; J2405; J3010; J7120

== ENCOUNTER → 2022-09-12 | Outpatient (CLI) | payer OTHER ==
[~2022-09-12] MED LIST changes: +CIPR500 PO
[2022-09-12 13:08] LABS: Source, Urine Voided
[2022-09-12 15:33] LABS: Appearance, Urine Clear (Clear); Bilirubin, Urine Neg (Neg); Blood, Urine Neg (Neg); Color, Urine Yellow (P-Yellow); Glucose Qualitative, Urine Neg (Neg); Ketones, Urine Neg (Neg); Leukocyte Esterase, Urine 1+ (Neg); Nitrite, Urine Neg (Neg); Protein, Urine Neg (Neg); Specific Gravity, Urine 1.005 (1.003-1.022); Urobilinogen, Urine NORM (Normal)
[2022-09-12 15:45] LABS: Bacteria Few /hpf; Red Blood Cells, Urine Not Seen /hpf (0-2); Squamous Epithelial Cells Rare /hpf (Few); White Blood Cells, Urine 0-2 /hpf (0-5)
== END ==
LOC: LAB 13:06 → LAB SHORT 13:06
PROVIDERS: Nurse Practitioner Family
DX: R31.9 Hematuria, unspecified (principal)
CPT/HCPCS: 81001; 87086

== ENCOUNTER 2023-03-29 21:49 | Emergency (ER) | payer OTHER ==
[~2023-03-29] VITALS: Ht 149.9 cm; Wt 69.0 kg
[2023-03-29 23:07] LABS: BASOPHILS ABSOLUTE AUTO 0.04 K/mm3 (0.00-0.23); BASOPHILS PERCENT AUTO 1 % (0-2); EOSINOPHILS ABSOLUTE AUTO 0.28 K/mm3 (0.00-0.68); EOSINOPHILS PERCENT AUTO 3 % (0-6); Hematocrit 36.2 % (33.0-51.0); Hemoglobin 12.1 g/dL (11.5-16.0); IMMATURE GRAN ABSOLUTE AUTO 0.02 K/mm3 (0.00-0.10); IMMATURE GRAN PERCENT AUTO 0 % (0-1); LYMPHOCYTES ABSOLUTE AUTO 3.66 K/mm3 (0.84-5.20); LYMPHOCYTES PERCENT AUTO 42 % (21-46); MONOCYTES ABSOLUTE AUTO 0.42 K/mm3 (0.16-1.47); MONOCYTES PERCENT AUTO 5 % (4-13); Mean Corpuscular HGB 28.4 pg (26.0-34.0); Mean Corpuscular HGB Conc 33.4 g/dL (31.5-36.5); Mean Corpuscular Volume 85 fL (80-100); Mean Platelet Volume 9.3 fL (9.1-12.4); NEUTROPHILS ABSOLUTE AUTO 4.35 K/mm3 (1.96-9.15); NEUTROPHILS PERCENT AUTO 50 % (41-73); Platelet Count 271 K/mm3 (150-400); RDW Coefficient Variation 12.4 % (11.7-14.2); RDW Standard Deviation 37.8 fL (35.1-46.3); Red Blood Cell Count 4.26 M/mm3 (3.80-5.20); White Blood Cell Count 8.77 K/mm3 (4.00-11.30)
[2023-03-29 23:25] LABS: Albumin, Blood 3.6 g/dL (3.4-5.0); Bilirubin, Total 0.2 mg/dL (0.1-1.0); Bun/Creatinine Ratio 23.4 (12.0-20.0); Calcium, Blood 8.6 mg/dL (8.5-10.1); Creatinine, Blood 0.6 mg/dL (0.40-1.00); Globulin, Blood 3.5 g/dL (2.2-4.0); Potassium, Blood 3.9 mmol/L (3.5-5.5); Total Protein, Blood 7.1 g/dL (6.4-8.2)
[2023-03-30] MEDS ORDERED: Ketorolac Tromethamine 30mg Vial IV ONE (00:05)
[2023-03-30] MEDS ORDERED: Ibuprofen600 MG PO (04:10)
[2023-03-30 04:11] VITALS: BP 110/72
== END 2023-03-30 04:15 | disposition home or self-care (01) ==
LOC: ER 21:49
PROVIDERS: Emergency Medicine
DX: R07.89 Other chest pain (principal); F41.9 Anxiety disorder, unspecified; F32.A Depression, unspecified; K21.9 Gastro-esophageal reflux disease without esophagitis; Z82.49 Family history of ischemic heart disease and other diseases of the circulatory system
CPT/HCPCS: 71046; 80053; 84484; 84703; 85025; 85379; 93005; 93010; 96374; 99285-25; J1885

== ENCOUNTER 2023-11-27 09:02 | Emergency (ER) | payer OTHER ==
[~2023-11-27] VITALS: Ht 149.9 cm; Wt 64.4 kg
[~2023-11-27 09:02] MED LIST changes: +AMOCLA875 PO; +DOXY100 PO; +Ibuprofen600 MG PO
[2023-11-27] MEDS ORDERED: MIGRAINE MEDICATION (09:28)
[2023-11-27] MEDS ORDERED: DiphenhydrAMINE HCl 50 MG/ML 1ML Vial IV ONE (10:15)
[2023-11-27] MEDS ORDERED: Ketorolac Tromethamine 30mg Vial IV ONE (10:15)
[2023-11-27] MEDS ORDERED: Metoclopramide HCl 5MG / ML 2ML Vial IV ONE (10:15)
[2023-11-27] MEDS ORDERED: NS 1,000 ML IV SCH (10:15)
[2023-11-27] MEDS ORDERED: METO10 PO (12:15)
[2023-11-27 12:44] VITALS: BP 118/78
== END 2023-11-27 12:44 | disposition home or self-care (01) ==
LOC: ER 09:02
DX: G43.909 Migraine, unspecified, not intractable, without status migrainosus (principal); J32.9 Chronic sinusitis, unspecified; K21.9 Gastro-esophageal reflux disease without esophagitis; Z88.0 Allergy status to penicillin
CPT/HCPCS: 96374; 96375; 99283-25; J1200; J1885; J2765; J7030

== ENCOUNTER 2025-02-10 14:49 | Emergency (ER) | payer OTHER ==
[~2025-02-10] VITALS: Ht 149.9 cm; Wt 70.3 kg
[~2025-02-10 14:49] MED LIST changes: +METO10 PO; +MIGRAINE MEDICATION
[2025-02-10 15:17] LABS: BASOPHILS ABSOLUTE AUTO 0.04 K/mm3 (0.00-0.23); BASOPHILS PERCENT AUTO 1 % (0-2); EOSINOPHILS ABSOLUTE AUTO 0.14 K/mm3 (0.00-0.68); EOSINOPHILS PERCENT AUTO 2 % (0-6); Hematocrit 39.6 % (33.0-51.0); Hemoglobin 13.4 g/dL (11.5-16.0); IMMATURE GRAN ABSOLUTE AUTO 0.02 K/mm3 (0.00-0.10); IMMATURE GRAN PERCENT AUTO 0 % (0-1); LYMPHOCYTES ABSOLUTE AUTO 2.83 K/mm3 (0.84-5.20); LYMPHOCYTES PERCENT AUTO 34 % (21-46); MONOCYTES ABSOLUTE AUTO 0.42 K/mm3 (0.16-1.47); MONOCYTES PERCENT AUTO 5 % (4-13); Mean Corpuscular HGB Conc 33.8 g/dL (31.5-36.5); Mean Corpuscular Volume 86 fL (80-100); NEUTROPHILS ABSOLUTE AUTO 4.80 K/mm3 (1.96-9.15); NEUTROPHILS PERCENT AUTO 58 % (41-73); NRBC ABSOLUTE 0.00 K/mm3 (0.00-0.02); NRBC Auto 0.0 /100 WBC (0.0-0.2); Platelet Count 290 K/mm3 (150-400); RDW Coefficient Variation 12.1 % (11.7-14.2); RDW Standard Deviation 38.0 fL (35.1-46.3)
[2025-02-10 15:51] LABS: Alanine Aminotransfer (ALT/SGP 17.0 U/L (12-78); Albumin, Blood 4.0 g/dL (3.4-5.0); Albumin/Globulin Ratio 1.1 (0.8-1.8); Anion Gap 8.0 mmol/L (3-11); Aspartate Aminotrans (AST/SGOT 16.0 U/L (12-37); Bilirubin, Total 0.6 mg/dL (0.1-1.0); Blood Urea Nitrogen 16.0 mg/dL (8-24); CO2, Blood 24.0 mmol/L (21-32); Calcium, Blood 8.9 mg/dL (8.5-10.1); Chloride, Blood 109.0 mmol/L (98-108); Creatinine, Blood 0.75 mg/dL (0.40-1.00); Globulin, Blood 3.6 g/dL (2.2-4.0); Glucose, Blood 94.0 mg/dL (70-99); Potassium, Blood 3.4 mmol/L (3.5-5.5); Sodium, Blood 138.0 mmol/L (136-145); Total Protein, Blood 7.6 g/dL (6.4-8.2)
[2025-02-10] MEDS ORDERED: OMEP20ER PO (18:39)
[2025-02-10] MEDS ORDERED: Lidocaine 2% Viscous Soln 15 ML UDC PO ONE (18:40)
[2025-02-10] MEDS ORDERED: Atropine/Scopalam/Hyoscam/PB 5 ML UDC PO ONE (18:40)
[2025-02-10 19:03] VITALS: BP 117/84
== END 2025-02-10 19:11 | disposition home or self-care (01) ==
LOC: ER 14:49
PROVIDERS: Emergency Medicine
DX: K21.9 Gastro-esophageal reflux disease without esophagitis (principal); Z88.0 Allergy status to penicillin; Z79.899 Other long term (current) drug therapy
CPT/HCPCS: 71046; 80053; 83690; 84484; 85025; 93005; 93010; 99285-25; A9270